=== PATIENT | female | born 1955 | race Caucasian/White ===

== ENCOUNTER → 2018-06-14 | Outpatient (CLI) | payer BC ==
--- NOTE | 2018-06-14 17:05 | US ---
EXAMINATION TYPE: US venous doppler duplex LE RT DATE OF EXAM: 06/14/2018 4:53 PM COMPARISON: US 2014 CLINICAL HISTORY: M25.561 Pain in right knee L80.9 Phlebitis/thrombo. History of PE's, clotting disor ders, patient on blood thinners SIDE PERFORMED: Right TECHNIQUE: The lower extremity deep venous system is examined utilizing real time linear array sonog taye with graded compression, doppler sonography and color-flow sonography. VESSELS IMAGED: External Iliac Vein (EIV) Common Femoral Vein Deep Femoral Vein Greater Saphenous Vein * Femoral Vein Popliteal Vein Small Saphenous Vein * Proximal Calf Veins (* superficial vessels) Right Leg: Appears negative for DVT, 4.4 x 2.5 x 2.1cm complex irregular cystic area seen within pop liteal fossa IMPRESSION: No evidence of deep venous thrombosis. Irregular complex popliteal cyst.
== END | disposition home or self-care (01) ==
LOC: RADUSWWP 16:26
PROVIDERS: ATTEND Orthopaedic Surgery
DX: M71.21 Synovial cyst of popliteal space [Baker], right knee (principal); M17.11 Unilateral primary osteoarthritis, right knee; I80.9 Phlebitis and thrombophlebitis of unspecified site; Z83.2 Family history of diseases of the blood and blood-forming organs and certain disorders involving the immune mechanism